=== PATIENT | male | born 1940 | race Caucasian/White ===

== ENCOUNTER 2020-12-20 06:58 | Emergency (ER) | payer MEDICARE, OTHER ==
[~2020-12-20 06:58] MED LIST: PROAIR HFA8.5 GM INH
[2020-12-20 07:39] LABS: BASOPHIL 0.6 % (0-2); EOSINOPHIL 1.2 % (0-7); HCT 49.6 % (42.0-52.0); HGB 16.2 g/dl (13.2-18.0); LYMPHOCYTE 22.6 % (15-48); MCH 31.6 pg (25.0-31.0); MCHC 32.7 g/dL (32.0-36.0); MCV 96.7 fL (78.0-100.0); MONOCYTE 8.1 % (0-12); MPV 10.7 fL (6.0-9.5); NEUTROPHIL 67.2 % (41-80); NRBC 0; PLT 236 K/uL (150-400); RBC 5.13 M/uL (4.70-6.00); RDW 13.5 % (11.5-14.0); WBC 10.1 K/uL (4.0-10.5)
[2020-12-20 07:42] LABS: INR 1.1 (0.9-1.2); PROTHROMBIN TIME 13.5 SECONDS (11.4-13.6); PTT 35.8 SECONDS (22.2-34.7)
[2020-12-20 07:54] LABS: LACTIC ACID 1.8 mmol/L (0.4-1.9)
[2020-12-20 08:11] LABS: BILIRUBIN NEGATIVE (NEGATIVE); BLOOD 3+ Ery/uL (NEGATIVE); CLARITY CLEAR (CLEAR); COLOR YELLOW (YELLOW); GLUCOSE (U) NORMAL (NORMAL); LEUKOCYTES NEGATIVE Leu/uL (NEGATIVE); NITRITE NEGATIVE (NEGATIVE); PROTEIN NEGATIVE (NEGATIVE); SPECIFIC GRAVITY >=1.030 (1.001-1.030); UROBILINOGEN 0.2 mg/dL (0.2-1.0); pH 5.5 (5.0-9.0)
[2020-12-20 08:27] LABS: ALBUMIN 3.9 g/dL (3.4-5.0); BILIRUBIN - TOTAL 0.9 mg/dL (0.2-1.0); BUN/CREAT RATIO (CALC) 17.2 RATIO; CREATININE 1.45 mg/dL (0.67-1.17); GLOBULIN (CALCULATION) 4.2 g/dL; POTASSIUM 4.3 mmol/L (3.5-5.1); TOTAL PROTEIN 8.1 g/dL (6.4-8.2)
[2020-12-20 08:35] LABS: URINARY RBC 20-50
[2020-12-20 08:36] LABS: MUCOUS TRACE; URINARY WBC RARE
[2020-12-20 08:54] LABS: CORONAVIRUS 2019 SARS-COV-2 NEGATIVE (NEGATIVE); INFLUENZA A NAA NEGATIVE (NEGATIVE)
--- NOTE | 2020-12-20 11:28 | NUR ---
REQUESTED TO COME TO ED BY DR. VAZ. SHE WANTS THE PT TO HAVE HOME HEALTH, NURSING AND PT. SPOKE WITH PT AND SPOUSE. SPOUSE REQUESTED [facility]. EXPLAINED AFFILIATION. SPOUSE STATED THAT HAS A ROLLING WALKER AND CANE. SPOUSE STATED THAT THEY DO HAVE SOME ASSISTANCE FROM THEIR DAUGHTER, LLOYD. TC TO [facility] WITH [facility]. SHE NEEDS A FACE SHEET, ER NOTES, COVID TEST AND A PROGRESS NOTE FROM THE DOCTOR. FAX INFORMATION TO [phone]. WAS UNAVAILABLE TO GIVE INFORMTION TO, BUT GAVE INFO TO CHRISTIANO ALVARENGA AND SHE WILL ADVISE PHYSICIAN. ADVISED PT. AND SPOUSE THAT I HAD MADE REFERRAL TO [facility] AND THEY WOULD BE IN CONTACT WITH HER. ALSO GAVE SPOUSE [facility] NUMBER AND ADVISED THAT IT MAY BE THE FIRST OF THE WEEK BEFORE THEY CAN GET THERE DUE TO BEING BEHIND BECAUSE OF THE WEATHER. PT. SPOUSE STATED THAT SHE UNDERSTOOD.
== END 2020-12-20 11:40 | disposition home or self-care (01) ==
LOC: FER 06:58
PROVIDERS: Emergency Medicine
DX: Z53.8 Procedure and treatment not carried out for other reasons (principal)
CPT/HCPCS: 36415; 70450; 71250; 80053; 81001; 83605; 84484; 85025; 85610; 85730; 87040; 87088; 93005; J7040; U0002

== ENCOUNTER 2020-12-22 11:15 | Inpatient (IN) | payer MEDICARE, OTHER ==
[2020-12-22 13:46] LABS: BASOPHIL 0.4 % (0-2); EOSINOPHIL 0.6 % (0-7); HCT 45.9 % (42.0-52.0); HGB 14.9 g/dl (13.2-18.0); MCH 31.6 pg (25.0-31.0); MCHC 32.5 g/dL (32.0-36.0); MCV 97.2 fL (78.0-100.0); MONOCYTE 9.7 % (0-12); NEUTROPHIL 73.9 % (41-80); NRBC 0; PLT 211 K/uL (150-400); RBC 4.72 M/uL (4.70-6.00); RDW 13.2 % (11.5-14.0); WBC 11.2 K/uL (4.0-10.5)
[2020-12-22 14:11] LABS: BILIRUBIN NEGATIVE (NEGATIVE); BLOOD NEGATIVE Ery/uL (NEGATIVE); CLARITY CLEAR (CLEAR); COLOR YELLOW (YELLOW); GLUCOSE (U) NORMAL (NORMAL); LEUKOCYTES NEGATIVE Leu/uL (NEGATIVE); NITRITE NEGATIVE (NEGATIVE); PROTEIN TRACE (LOW) mg/dL (NEGATIVE); UROBILINOGEN 0.2 mg/dL (0.2-1.0)
[2020-12-22 14:12] LABS: PRO-BNP 186 pg/mL (<450)
[2020-12-22 14:14] LABS: ALBUMIN 3.2 g/dL (3.4-5.0); BILIRUBIN - TOTAL 0.8 mg/dL (0.2-1.0); BUN/CREAT RATIO (CALC) 16.8 RATIO; CREATININE 1.07 mg/dL (0.67-1.17); GLOBULIN (CALCULATION) 4.2 g/dL; MAGNESIUM 2.1 mg/dL (1.8-2.4); POTASSIUM 4.3 mmol/L (3.5-5.1); TOTAL PROTEIN 7.4 g/dL (6.4-8.2)
[2020-12-22 14:19] LABS: SQUAMOUS EPITHELIAL CELLS RARE
[2020-12-22] MEDS ORDERED: ZOCOR20 MG PO (17:20)
[2020-12-22] MEDS ORDERED: ASPIRIN EC81 MG PO (17:20)
[2020-12-22] MEDS ORDERED: LOPRESSOR25 MG PO (17:22)
[2020-12-22] MEDS ORDERED: LOVAZA1 GM PO (17:22)
[2020-12-22] MEDS ORDERED: PRINIVIL10 MG PO (17:22)
[2020-12-22] MEDS ORDERED: ARICEPT10 MG PO (17:22)
[2020-12-22] MEDS ORDERED: CENTRUM SILVER1 EAC5 PO (17:23)
[2020-12-22] MEDS ORDERED: SEROQUEL 25MG T25 MG PO (17:23)
[2020-12-22] MEDS ORDERED: NAMENDA 10MG TA10 MG PO (17:24)
[2020-12-22] MEDS ORDERED: SEROQUEL25 MG PO (17:25)
[2020-12-23 06:00] LABS: BASOPHIL 0.6 % (0-2); EOSINOPHIL 1.9 % (0-7); HCT 41.8 % (42.0-52.0); HGB 13.7 g/dl (13.2-18.0); LYMPHOCYTE 24.3 % (15-48); MCH 31.5 pg (25.0-31.0); MCHC 32.8 g/dL (32.0-36.0); MCV 96.1 fL (78.0-100.0); MONOCYTE 7.9 % (0-12); MPV 10.1 fL (6.0-9.5); NEUTROPHIL 64.9 % (41-80); NRBC 0; PLT 208 K/uL (150-400); RBC 4.35 M/uL (4.70-6.00); RDW 13.2 % (11.5-14.0); WBC 8.4 K/uL (4.0-10.5)
[2020-12-23 06:44] LABS: PRO-BNP 229 pg/mL (<450)
[2020-12-23 06:55] LABS: BUN/CREAT RATIO (CALC) 16.9 RATIO; CREATININE 1.18 mg/dL (0.67-1.17); FT4 (FREE T4) 0.9 ng/dL (0.76-1.46); PHOSPHORUS 3.7 mg/dL (2.6-4.7); POTASSIUM 4.3 mmol/L (3.5-5.1)
--- NOTE | 2020-12-23 14:26 | NUR ---
12/23/20 Mr. Alejo lives at home with his spouse. He uses a cane for mobility. He also has a rw, 3in1, and s. chair. They have 2 children; one is able to assit. Ms. Alejo has requested SNF placement. Her first choice is [facility] and the 2nd choice is [facility] and [facility]. [facility] is reviewing.
[2020-12-24 06:24] LABS: BASOPHIL 0.6 % (0-2); HCT 39.9 % (42.0-52.0); HGB 13.1 g/dl (13.2-18.0); LYMPHOCYTE 16.8 % (15-48); MCH 31.5 pg (25.0-31.0); MCHC 32.8 g/dL (32.0-36.0); MCV 95.9 fL (78.0-100.0); MPV 9.7 fL (6.0-9.5); NEUTROPHIL 71.3 % (41-80); NRBC 0; PLT 219 K/uL (150-400); RBC 4.16 M/uL (4.70-6.00); RDW 13.2 % (11.5-14.0); WBC 8.6 K/uL (4.0-10.5)
[2020-12-24 07:01] LABS: CREATININE 1.12 mg/dL (0.67-1.17); POTASSIUM 4.4 mmol/L (3.5-5.1)
--- NOTE | 2020-12-24 12:18 | NUR ---
12/24/20 [facility] has accepted Mr. Alejo. Please call report to: [phone] and fax DS to: [phone]. Report given to MS CHRISTIANO Hope.
[2020-12-24] MEDS ORDERED: CEFDINIR300 MG PO (15:07)
[2020-12-24] MEDS ORDERED: FLORANEX TABLE1 EACH PO (15:07)
[2020-12-24] MEDS ORDERED: DUONEB 2.5-0.5M1 AMP NEB (15:07)
== END 2020-12-24 19:50 | DRG 177 ==
LOC: FER 11:15 → FMS 15:06
PROVIDERS: Emergency Medicine; ADMIT Internal Medicine
DX: J69.0 Pneumonitis due to inhalation of food and vomit (principal); G93.41 Metabolic encephalopathy; J96.01 Acute respiratory failure with hypoxia; J44.1 Chronic obstructive pulmonary disease with (acute) exacerbation; I10 Essential (primary) hypertension; G30.9 Alzheimer's disease, unspecified; F02.80 Dementia in other diseases classified elsewhere, unspecified severity, without behavioral disturbance, psychotic disturbance, mood disturbance, and anxiety; Z20.822 Contact with and (suspected) exposure to COVID-19; Z98.890 Other specified postprocedural states; Z87.891 Personal history of nicotine dependence
CPT/HCPCS: 36415; 36600; 70450; 71045; 71250; 80048; 80053; 81001; 82607; 82803; 83605; 83735; 83880; 84100; 84145; 84439; 84443; 84484; 85025; 85610; 85730; 87040; 87088; 92523; 93005; 94640; 94667; 94668; 97110; 97116; 97162; 97166; 97530-GP; 97535; J0456; J0696; J7030; J7040; J7050; U0002